=== PATIENT | female | born 1990 | race Two or more races ===

== ENCOUNTER 2021-02-13 02:26 | Emergency (ER) | payer OTHER ==
[~2021-02-13] VITALS: Ht 152.4 cm; Wt 53.0 kg
[2021-02-13] MEDS ORDERED: CEPH250C2 MT (02:53)
[2021-02-13 02:59] VITALS: BP 106/78
[2021-02-13] MEDS ORDERED: IBUPROFEN 400MG TABLET PO ONE (03:00)
[2021-02-13 03:08] LABS: CLARITY URINE CLOUDY (CLEAR); COLOR URINE ORANGE (YELLOW); KETONES URINE NEGATIVE (NEGATIVE); LEUKOCYTE ESTERASE URINE 3+ (NEGATIVE); NITRITE URINE POSITIVE (NEGATIVE); OCCULT BLOOD URINE 3+ (NEGATIVE); PH URINE 5.5 (4.5-8.0); PROTEIN URINE 4+ (NEGATIVE); SPECIFIC GRAVITY URINE 1.017 (1.005-1.030)
== END 2021-02-13 03:02 | disposition home or self-care (01) ==
LOC: ER 02:26
DX: N30.00 Acute cystitis without hematuria (principal); Z91.040 Latex allergy status
CPT/HCPCS: 81003; 81025; 87077; 87186; 99283

== ENCOUNTER 2023-09-01 10:07 | Emergency (ER) | payer BC, MEDICAID ==
[~2023-09-01] VITALS: Ht 152.4 cm; Wt 53.0 kg
[~2023-09-01 10:07] MED LIST: CEPH250C2 MT
[2023-09-01 10:13] VITALS: O2SAT 99
[2023-09-01 10:55] LABS: CLARITY URINE CLEAR (CLEAR); COLOR URINE YELLOW (YELLOW); GLUCOSE URINE NEGATIVE (NEGATIVE); KETONES URINE NEGATIVE (NEGATIVE); LEUKOCYTE ESTERASE URINE 1+ (NEGATIVE); NITRITE URINE NEGATIVE (NEGATIVE); OCCULT BLOOD URINE NEGATIVE (NEGATIVE); PROTEIN URINE NEGATIVE (NEGATIVE); SPECIFIC GRAVITY URINE 1.019 (1.005-1.030); UROBILINOGEN URINE 0.2 E.U./dL (0.2-1.0)
[2023-09-01 11:26] LABS: BACTERIA URINE 2+; RBC URINE 0-2 /hpf (0-2); SQUAMOUS EPITHELIAL CELL URINE 3+ /lpf (RARE/1+); YEAST URINE NONE SEEN
[2023-09-01] MEDS ORDERED: SULF1TAB48 MT (12:42)
[2023-09-01] MEDS ORDERED: METR-167 MT (12:48)
[2023-09-01 13:03] VITALS: BP 108/66; PULSE 78; RESP 16; TEMP 98.6
[2023-09-04 04:07] LABS: CHLAMYDIA TRACHOMATIS NAA Negative (Negative); NEISSERIA GONORRHOEAE NAA Negative (Negative)
== END 2023-09-01 14:18 | disposition home or self-care (01) ==
LOC: ER 10:07
DX: N76.0 Acute vaginitis (principal); Z91.040 Latex allergy status
CPT/HCPCS: 87491; 87591; 81003; 87210; 99284; Z7610 ×2